=== PATIENT | male | born 1995 | race Caucasian/White ===

== ENCOUNTER 2023-11-26 08:04 | Outpatient (CLI) | payer SELFPAY ==
--- NOTE | 2023-11-26 08:00 | US_ITS ---
WS: [id number] TESTICULAR ULTRASOUND HISTORY: N50.811 - Right testicular pain COMPARISON: None available. TECHNIQUE: Real-time and color Doppler imaging or utilized to perform a testicular ultrasound. Right testicle: 4.5 cm x 3.0 cm x 2.1 cm. Normal size and echogenicity. No mass or torsion. Normal color Doppler is present throughout. Systolic and diastolic velocities are both present. No significant hydrocele. Right epididymis: Normal epididymis with no increased vascularity. Left testicle: 4.7 cm x 3.0 cm x 2.0 cm. Normal size and echogenicity. No mass or torsion. Normal color Doppler is present throughout. Systolic and diastolic velocities are both present. No significant hydrocele. Left epididymis: LEFT epididymal cyst 0.8 x 0.5 x 0.7 cm. There is a significant left-sided varicocele. US/US scrotum [id number] IMPRESSION: 1. No testicular mass or torsion. 2. No orchitis. 3. Significant LEFT varicocele. 4. Small LEFT epididymal head cyst.
== END 2023-11-26 08:05 | disposition home or self-care (01) ==
PROVIDERS: PCP Family Medicine; Visit Provider Registered Nurse
DX: N50.811 Right testicular pain (principal); N50.812 Left testicular pain; I86.1 Scrotal varices
CPT/HCPCS: 76870